=== PATIENT | female | born 1980 | race Caucasian/White ===

== ENCOUNTER 2019-10-06 19:32 | Emergency (ER) | payer MEDICAID ==
[~2019-10-06] VITALS: Ht 157.5 cm; Wt 83.9 kg
--- OUTSIDE RECORDS SUMMARY | 2019-10-06 20:52 | XMS ---
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 Kam has no Care Guidelines for this patient. Tod VISIT COUNT (12 MO.) 1 BROCK Johnson TOTAL 1 NOTE: Visits indicate total known visits. ED/UCC VISIT TRACKING (12 MO.) 10/06/2019 19:33 [facility] [place] TYPE: Emergency COMPLAINT: - UPPER ABDOMINAL PAIN INPATIENT VISIT TRACKING (12 MO.) No inpatient visits to display in this time frame [id number]
[2019-10-06] MEDS ORDERED: ZOFRAN4 MG PO (21:37)
[2019-10-06] MEDS ORDERED: PROMETHAZINE HC25 M1 PO (21:37)
== END 2019-10-06 22:12 | disposition home or self-care (01) ==
LOC: ED 19:32
DX: R10.9 Unspecified abdominal pain (principal); Z87.891 Personal history of nicotine dependence
CPT/HCPCS: 80053; 81001; 83690; 83735; 85025; 96361; 96374; 96375; 99284-25; J1885; J2405; J7030